=== PATIENT | male | born 1970 | race Caucasian/White ===

== ENCOUNTER 2022-03-23 13:15 | Outpatient (CLI) | payer BC, SELFPAY ==
[2022-03-23 17:41] LABS: Chloride* 106 mmol/L (96-114); Potassium* 4.5 mmol/L (3.6-5.1); Sodium* 140 mmol/L (135-149)
[2022-03-23 17:43] LABS: Cholesterol* 172 mg/dL (90-199)
[2022-03-23 17:44] LABS: Blood Urea Nitrogen* 17 mg/dL (7-30); Carbon Dioxide* 25 mmol/L (20-32); Creatinine* 0.7 mg/dL (0.5-1.5); Estimated Glomerular Filt Rate 110 ml/min; Glucose* 106 mg/dL (60-115); Triglycerides* 116 mg/dL (40-149)
[2022-03-23 17:45] LABS: Calcium* 9.5 mg/dL (8.4-10.6); HDL Cholesterol* 36 mg/dL (>=40); LDL Cholesterol Calculated 113 mg/dL (<100)
[2022-03-23 18:12] LABS: PSA Screen* 0.53 ng/mL (0.10-4.00)
== END 2022-03-23 13:16 | disposition home or self-care (01) ==
PROVIDERS: PCP Family Medicine; Visit Provider Family Medicine
DX: E13.9 Other specified diabetes mellitus without complications (principal); E78.5 Hyperlipidemia, unspecified; Z13.6 Encounter for screening for cardiovascular disorders; Z13.0 Encounter for screening for diseases of the blood and blood-forming organs and certain disorders involving the immune mechanism; Z12.5 Encounter for screening for malignant neoplasm of prostate
CPT/HCPCS: 80048; 80061; 84153

== ENCOUNTER 2022-04-23 07:24 | Outpatient (CLI) | payer BC, SELFPAY | END 2022-04-23 07:25 | disposition home or self-care (01) | PROVIDERS: PCP Family Medicine; Visit Provider Internal Medicine | DX: Z12.11 Encounter for screening for malignant neoplasm of colon (principal); K64.8 Other hemorrhoids | CPT/HCPCS: 45378; J2250; J3010 ==

== ENCOUNTER 2023-02-04 13:56 | Outpatient (CLI) | payer BC, SELFPAY | END 2023-02-04 13:57 | disposition home or self-care (01) | LOC: NFLDREF 13:58 | PROVIDERS: PCP Family Medicine; Visit Provider Family Medicine | DX: E11.9 Type 2 diabetes mellitus without complications (principal); E78.5 Hyperlipidemia, unspecified; E13.9 Other specified diabetes mellitus without complications | CPT/HCPCS: 80048; 80061 ==

== ENCOUNTER 2024-05-30 11:31 | Outpatient (CLI) | payer BC, SELFPAY | END 2024-05-30 11:32 | disposition home or self-care (01) | LOC: NFLDREF 06-01 03:15 | PROVIDERS: PCP Family Medicine; Referring Provider Family Medicine; Visit Provider Family Medicine | DX: E11.9 Type 2 diabetes mellitus without complications (principal); L40.9 Psoriasis, unspecified; E78.2 Mixed hyperlipidemia; Z12.5 Encounter for screening for malignant neoplasm of prostate | CPT/HCPCS: 80048; 80061; G0103 ==